=== PATIENT | female | born 1970 | race Caucasian/White ===

== ENCOUNTER → 2016-10-18 | Outpatient (CLI) | payer BC ==
[~2016-10-18] MED LIST: AMLO-114 PO; ATOR-24 PO; CALCTAB7 PO; GLC500 PO; GLUC10007 PO; HYDR25TA5 PO; LISI10TA PO; MULT-240 PO; OMEG10007 PO; WARF-246 PO; WARF1TAB6 PO; WARF2TAB8 PO
[2016-10-18 18:18] LABS: ALT/SGPT 30 U/L (12-78); BLOOD UREA NITROGEN 21 mg/dl (7-18); BUN/CREATININE RATIO 21.2 (10-20); CALCIUM 9.3 mg/dl (8.5-10.1); CARBON DIOXIDE 27 mmol/L (21-32); CHLORIDE 103 mmol/L (98-107); CREATININE 0.99 mg/dl (0.60-1.20); GLUCOSE 100 mg/dl (70-99); POTASSIUM 4.1 mmol/L (3.5-5.1); SODIUM 138 mmol/L (136-145)
[2016-10-18 18:21] LABS: ALB/GLOB RATIO 0.8 (0.9-2); ALKALINE PHOSPHATASE 67 U/L (45-117); AST/SGOT 17 U/L (15-37)
[2016-10-19 06:13] LABS: ESTIMATED AVERAGE GLUCOSE 137 mg/dl; HA1C FLAG Normal (Normal)
== END | disposition home or self-care (01) ==
LOC: C.LAB 17:10
PROVIDERS: ATTEND Family Medicine
DX: E11.9 Type 2 diabetes mellitus without complications (principal)

== ENCOUNTER → 2017-03-20 | Outpatient (CLI) | payer BC ==
[~2017-03-20] MED LIST changes: -WARF2TAB8 PO
[2017-03-20 09:54] LABS: ALT/SGPT 50 U/L (12-78); BLOOD UREA NITROGEN 17 mg/dl (7-18); BUN/CREATININE RATIO 19.7 (10-20); CALCIUM 9.6 mg/dl (8.5-10.1); CARBON DIOXIDE 27 mmol/L (21-32); CHLORIDE 105 mmol/L (98-107); CHOLESTEROL 165 mg/dl (0-200); CREATININE 0.87 mg/dl (0.60-1.20); GLUCOSE 113 mg/dl (70-99); POTASSIUM 3.8 mmol/L (3.5-5.1); SODIUM 139 mmol/L (136-145); TRIGLYCERIDES 205 mg/dl (0-150); VERY LOW DENSITY LIPOPROT CALC 41 mg/dl
[2017-03-20 10:05] LABS: ALB/GLOB RATIO 0.7 (0.9-2); ALKALINE PHOSPHATASE 74 U/L (45-117); AST/SGOT 28 U/L (15-37); CHOLESTEROL/HDL RATIO 3.1; HDL CHOLESTEROL 53 mg/dl; LDL CHOLESTEROL CALCULATED 71 mg/dl
[2017-03-20 12:57] LABS: LYME DISEASE AB IGG NEG (NEG); LYME DISEASE AB IGM NEG (NEG)
[2017-03-20 13:42] LABS: ESTIMATED AVERAGE GLUCOSE 134 mg/dl; HA1C FLAG Normal (Normal)
== END | disposition home or self-care (01) ==
LOC: C.LAB 08:07
PROVIDERS: ATTEND Physician Assistant Medical
DX: R53.83 Other fatigue (principal); I26.99 Other pulmonary embolism without acute cor pulmonale; I10 Essential (primary) hypertension; E11.9 Type 2 diabetes mellitus without complications; E78.00 Pure hypercholesterolemia, unspecified

== ENCOUNTER → 2018-03-17 | Outpatient (CLI) | payer BC ==
[~2018-03-17] MED LIST changes: -AMLO-114 PO; +AMLO10TA3 PO; -CALCTAB7 PO; -GLUC10007 PO; -MULT-240 PO; -WARF1TAB6 PO
[2018-03-17 09:50] LABS: HEMOGLOBIN A1C 6.7 % (4.5-5.6)
[2018-03-17 10:07] LABS: ALBUMIN 3.5 gm/dl (3.4-5.0); ALKALINE PHOSPHATASE 74 U/L (45-117); ALT/SGPT 49 U/L (12-78); AST/SGOT 29 U/L (15-37); BLOOD UREA NITROGEN 15 mg/dl (7-18); CALCIUM 9.1 mg/dl (8.5-10.1); CARBON DIOXIDE 26 mmol/L (21-32); CREATININE 0.98 mg/dl (0.60-1.20); GLUCOSE 118 mg/dl (70-99); POTASSIUM 3.9 mmol/L (3.5-5.1); SODIUM 138 mmol/L (136-145); TOTAL PROTEIN 8.2 gm/dl (6.4-8.2)
== END | disposition home or self-care (01) ==
LOC: C.LAB 08:41
PROVIDERS: ATTEND Physician Assistant Medical
DX: E11.9 Type 2 diabetes mellitus without complications (principal); I10 Essential (primary) hypertension; E78.00 Pure hypercholesterolemia, unspecified

== ENCOUNTER 2024-09-18 06:31 | Observation (INO) ==
--- NOTE | 2024-08-19 10:40 | PAT Medication Instructions ---
Medication Instructions Date of Service August 19, 2024 Home Medications Medication Instructions Recorded sertraline 100 mg tablet 150 mg (1.5 x 100 mg) PO QAM 90 01/14/24 days #135 tabs Ozempic 2 mg/dose (8 mg/3 mL) 2 mg (0.75 mL) subcut Q7D #9 mL 03/12/24 subcutaneous pen injector (semaglutide) topiramate 25 mg tablet 25 mg PO HS #90 tabs 03/12/24 warfarin 5 mg tablet See Rx Instructions PO UD #170 tabs 03/26/24 atorvastatin 20 mg tablet 20 mg PO QPM #90 tabs 05/22/24 hydrochlorothiazide 25 mg tablet 12.5 mg (1/2 x 25 mg) PO QAM #45 05/22/24 tabs pantoprazole 40 mg tablet,delayed See Rx Instructions .Route 05/26/24 release .COMPLEX #90 tabs ustekinumab 90 mg/mL subcutaneous 90 mg subcut .w0sicba #1 mL 07/07/24 syringe (Stelara) mesalamine 800 mg tablet,delayed See Rx Instructions .Route 08/04/24 release .COMPLEX #540 tabs lisinopril 10 mg tablet See Rx Instructions .Route 08/12/24 .COMPLEX #30 tabs vgbksym-wtbfltwijefqa-wkfqzxee 250 mg-250 mg-65 mg tablet (Excedrin Extra Strength) 1 tab PO DAILY PRN migraines dicyclomine 10 mg capsule 10 mg PO Q6H PRN abdominal discomfort lactobacillus combination no.4 3 billion cell capsule (Probiotic) 3,000 mmu cells PO DAILY multivitamin 1 tab PO DAILY diclofenac sodium 1 % topical gel (Voltaren Arthritis Pain) 4 g topical QID PRN Pain sertraline 100 mg tablet 150 mg (1.5 x 100 mg) PO QAM Ozempic 2 mg/dose (8 mg/3 mL) subcutaneous pen injector (semaglutide) 2 mg (0.75 mL) subcut Q7D topiramate 25 mg tablet 25 mg PO HS warfarin 5 mg tablet See Rx Instructions PO UD atorvastatin 20 mg tablet 20 mg PO QPM hydrochlorothiazide 25 mg tablet 12.5 mg (1/2 x 25 mg) PO QAM pantoprazole 40 mg tablet,delayed release See Rx Instructions ustekinumab 90 mg/mL subcutaneous syringe (Stelara) 90 mg subcut .[id number] mesalamine 800 mg tablet,delayed release See Rx Instructions lisinopril 10 mg tablet See Rx Instructions naltrexone 50 mg tablet 50 mg PO DAILY WEIGHT MANAGEMENT Continue as directed pantoprazole 40 mg tablet,delayed release See Rx Instructions ASK your surgeon for instructions crxgltf-xvrikaggjovbo-waczjwps 250 mg-250 mg-65 mg tablet (Excedrin Extra Strength) 1 tab PO DAILY PRN migraines ASK your prescriber and surgeon warfarin 5 mg tablet See Rx Instructions PO UD ustekinumab 90 mg/mL subcutaneous syringe (Stelara) 90 mg subcut .[id number] mesalamine 800 mg tablet,delayed release See Rx Instructions STOP taking at least 7 days before surgery Ozempic 2 mg/dose (8 mg/3 mL) subcutaneous pen injector (semaglutide) 2 mg (0.75 mL) subcut Q7D STOP taking 24 hours before surgery diclofenac sodium 1 % topical gel (Voltaren Arthritis Pain) 4 g topical QID PRN Pain DO NOT take the morning of surgery dicyclomine 10 mg capsule 10 mg PO Q6H PRN abdominal discomfort lactobacillus combination no.4 3 billion cell capsule (Probiotic) 3,000 mmu cells PO DAILY multivitamin 1 tab PO DAILY hydrochlorothiazide 25 mg tablet 12.5 mg (1/2 x 25 mg) PO QAM naltrexone 50 mg tablet 50 mg PO DAILY WEIGHT MANAGEMENT Take morning of surgery With a small sip of water, OTHERWISE NOTHING TO EAT OR DRINK AFTER MIDNIGHT: sertraline 100 mg tablet 150 mg (1.5 x 100 mg) PO QAM Take evening before surgery dicyclomine 10 mg capsule 10 mg PO Q6H PRN abdominal discomfort (if needed) atorvastatin 20 mg tablet 20 mg PO QPM lisinopril 10 mg tablet See Rx Instructions topiramate 25 mg tablet 25 mg PO HS Other Notes If you have any questions please call us at [phone] or [phone] or [phone] or [phone]
--- NOTE | 2024-08-25 11:07 | Anesthesiology Consultation ---
Date of Service August 25, 2024 Assessment & Plan (1) Encounter for pre-operative examination: - Check coags, BSG, test DOS (Warfarin instructions per surgeon/prescriber) - Infectious disease screening: Per assessment on 08/25/24- No known recent infectious disease contacts or current infectious disease symptoms. - Outpatient joint assessment: Pt currently scheduled for inpatient pathway. If surgeon requests review for outpatient joint pathway, patient is not recommended candidate for outpatient joint program from anesthesia standpoint based on available information. - Semaglutide instructions: Patient informed by PAT to stop 7 days prior to surgery- voiced understanding. DOS 09/18/24. Advised last dose to be 09/09/24. Chart Review Chart Review: Acceptable Risk for Surgery and Patient seen in Pre Admission Testing Teaching & Discussion Pre-Anesthesia Teaching/Discussion Notes: Instructed NPO after midnight before surgery,except medications with 15 cc of water. Medication instructions provided according to the PAT guidelines. History Surgery Operation Date: 09/18/24 08:00 Proposed Procedures p Left Total Knee Arthroplasty - Siddharth Morgan, DO Height/Weight Height: 5 ft 6 in Weight: 120 kg Allergies Allergy/AdvReac Type Severity Reaction Status Date / Time latex Allergy Intermediate Skin Verified 08/24/24 11:46 redness/itchy, "bumpy" (latex gloves) Medications Home Medications Medication Instructions Recorded Confirmed Last Taken xedozlq-hdizdgezseqkb-vtswixhk 250 1 tab PO DAILY PRN migraines 03/10/21 08/19/24 Unknown mg-250 mg-65 mg tablet (Excedrin Extra Strength) dicyclomine 10 mg capsule 10 mg PO Q6H PRN abdominal 07/31/21 08/19/24 07/31/21 discomfort lactobacillus combination no.4 3 3,000 mmu cells PO DAILY 09/07/22 08/19/24 08/01/23 billion cell capsule (Probiotic) multivitamin 1 tab PO DAILY 10/17/22 08/19/24 07/31/23 diclofenac sodium 1 % topical gel 4 g topical QID PRN Pain 12/19/23 08/19/24 Unknown (Voltaren Arthritis Pain) sertraline 100 mg tablet 150 mg (1.5 x 100 mg) PO QAM 90 01/14/24 08/19/24 Unknown days #135 tabs Ozempic 2 mg/dose (8 mg/3 mL) 2 mg (0.75 mL) subcut Q7D #9 mL 03/12/24 08/19/24 Unknown subcutaneous pen injector (semaglutide) topiramate 25 mg tablet 25 mg PO HS #90 tabs 03/12/24 08/19/24 Unknown warfarin 5 mg tablet See Rx Instructions PO UD #170 tabs 03/26/24 08/19/24 Unknown atorvastatin 20 mg tablet 20 mg PO QPM #90 tabs 05/22/24 08/19/24 Unknown hydrochlorothiazide 25 mg tablet 12.5 mg (1/2 x 25 mg) PO QAM #45 05/22/24 08/19/24 Unknown tabs ustekinumab 90 mg/mL subcutaneous 90 mg subcut .h1gkrzd #1 mL 07/07/24 08/19/24 Unknown syringe (Stelara) mesalamine 800 mg tablet,delayed See Rx Instructions .Route 08/04/24 08/19/24 Unknown release .COMPLEX #540 tabs lisinopril 10 mg tablet See Rx Instructions .Route 08/12/24 08/19/24 Unknown .COMPLEX #30 tabs naltrexone 50 mg tablet 50 mg PO DAILY WEIGHT MANAGEMENT 08/19/24 08/19/24 Unknown pantoprazole 40 mg tablet,delayed See Rx Instructions .Route 08/24/24 Unknown release .COMPLEX #90 tabs Past Medical History Medical History Anxiety Deep vein thrombosis of distal lower extremity 2009, unknown etiology Taking warfarin Depression GERD (gastroesophageal reflux disease) HTN (hypertension) Hypercholesteremia Immunosuppression Lyme disease (~2020) no issues at present Migraine Mild obstructive sleep apnea Non-compliant w/CPAP Morbid obesity Nocturnal hypoxemia Per records Osteoarthritis Pulmonary embolism 2009, unknown etiology Taking warfarin Type 2 diabetes mellitus NIDDM Ulcerative colitis Dx 2007 Exercise / Class Metabolic Activity II 4-5 Yardwork/Stairs/Walk up hill (one FS: No CP, no SOB) Past Family History Family History Mother Diabetes Myocardial infarction Hypertension Grandmother (Maternal) Myocardial infarction Diabetes Father Esophageal cancer Colorectal cancer, Onset Age: 60 Lung cancer Liver cancer Colonic polyp Stomach cancer Grandfather (Maternal) Lymphoma Other No family history of adverse response to anesthesia Denies family history of Ovarian cancer Breast cancer Uterine cancer Past Surgical History Surgical History H/O excision of mass (2021) Compound melanocytic nevus In office procedure History of colonoscopy Tubular adenoma History of esophagogastroduodenoscopy (EGD) EGD/colonoscopy, [place] (07/2023) History of tonsillectomy and adenoidectomy 2006 History of wisdom tooth extraction Past Anesthesia History No Hx of Anesthesia Complications and No Family Hx of Anesthesia Complications History of PONV No Hx of PONV and No Hx of Motion Sickness Social History Smoking Status: Never smoker Do You Dip or Chew Tobacco: No Hx Alcohol Use: Yes Alcohol type: beer alcohol intake frequency: holidays/special occasions only Hx Substance Use: No substance use type: does not use Review of Systems Patient denies chest pain, shortness of breath, dyspnea on exertion, fever, chills, cough, wheezing, palpitations. Physical Exam Vital Signs BP 123/80 P 64 TEMP 97.7 SP02 99%RA RESP 18 Physical Full cervical extension range of motion. Full TMJ range of motion. TMD > 3.5 finger breaths Mallampati Score I Dentition: intact Lungs: clear throughout to auscultation Cardiac: regular rate and rhythm, no murmurs noted Spine: normal Carotid arteries: negative bruit Extremities: no LE edema Lab Results Anesthesia Preop Results Results Anesthesia Widget: WBC 6.78 K/ul (4.8-10.8) 08/25/24 Hgb 11.6 g/dl (12.0-16.0) L 08/25/24 Hct 37.6 % (37.0-47.0) 08/25/24 Plt 245 K/uL (130-400) 08/25/24 Na 138 mmol/L (136-145) 08/25/24 K 4.1 mmol/L (3.5-5.1) 08/25/24 Cl 106 mmol/L (98-107) 08/25/24 CO2 26 mmol/L (21-32) 08/25/24 BUN 22 mg/dl (6-23) 08/25/24 Creat 0.87 mg/dl (0.6-1.2) 08/25/24 Glucose Level 93 mg/dl (70-99(Fasting)) 08/25/24 PT 20.0 Seconds (9.0-12.0) H 08/25/24 PTT 34 Seconds (21-31) H 08/25/24 INR 2.0 (0.9-1.1) H 08/25/24 HA1c 6.2 % (4.5-5.6) H 07/07/24 Blood Type A Positive 08/25/24 Antibody Screen NEGATIVE 08/25/24 Testing Electrocardiogram Date: 08/25/24 NSR at 60bpm. "Normal ECG" Chest X-Ray Date: 08/25/24 Findings: + NAD
[~2024-09-18 06:31] MED LIST changes: -AMLO10TA3 PO; -ATOR-24 PO; +BUPIVACAINE 0.25% PF 30 ML VIAL ONE; +BUPIVACAINE 0.5 % 5 MG/1 ML PF 10ML VIAL ONE; -GLC500 PO; -HYDR25TA5 PO; -LISI10TA PO; -OMEG10007 PO; -WARF-246 PO
--- NOTE | 2024-09-18 06:34 | History & Physical Bridge Note ---
Date of Service September 18, 2024 History & Physical Bridge Note I have examined the patient, reviewed the History & Physical and in the interval since the performance of the History & Physical I have noted the following changes of clinical significance: no changes noted
[2024-09-18] MEDS ORDERED: MIDAZOLAM HCL 1 MG/ML 2ML VIAL ONE (06:47)
[2024-09-18] MEDS ORDERED: PROPOFOL IV EMULSION 10 MG/ML 20 ML VIAL IV ONE (06:50)
[2024-09-18] MEDS ORDERED: ONDANSETRON INJ 2 MG/ML 2 ML VIAL ONE ×2 (06:56→08:57)
[2024-09-18] MEDS: LR 60ML/HR IV SCH (07:19)
[2024-09-18] MEDS: LR 500ML BOLUS, THEN 15ML/HR IV SCH (07:19)
[2024-09-18] MEDS: GABAPENTIN 300 MG CAP PO SCH (07:20)
[2024-09-18] MEDS: ACETAMINOPHEN 500 MG TAB PO SCH ×2 (07:20→14:33)
[2024-09-18] MEDS: dexAMETHasone**PF** 10 MG/ML VIAL IV SCH (07:21)
[2024-09-18] MEDS: FAMOTIDINE 20 MG TAB PO SCH (07:22)
[2024-09-18] MEDS ORDERED: PROMETHAZINE HCL 6.25 MG in SODIUM CHLORIDE 0.9% 50 ML IV PRN (07:33)
[2024-09-18] MEDS ORDERED: ePHEDrine sulfate 50 MG/ML AMP IV PRN (07:33)
[2024-09-18] MEDS ORDERED: ONDANSETRON INJ 2 MG/ML 2 ML VIAL IV PRN ×2 (07:33→12:41)
[2024-09-18] MEDS ORDERED: fentaNYL citrate PF 100 MCG/2 ML VIAL IV PRN (07:33)
[2024-09-18] MEDS ORDERED: ATROPINE SULFATE 0.1 MG/ML 10ML SYR IV PRN (07:33)
[2024-09-18 07:59] LABS: Partial Thromboplastin Ratio 0.9; Partial Thromboplastin Time 25 Seconds (21-31); Prothrombin Time 10.9 Seconds (9.0-12.0)
[2024-09-18] MEDS: TRANEXAMIC ACID 1,000 MG **IV Pre-op IV SCH (08:08)
[2024-09-18] MEDS: ceFAZolin 3000MG 3,000 MG/72.5 ML BAG IV SCH (08:20)
[2024-09-18] MEDS ORDERED: KETAMINE HCL 10MG/ML SYR ONE (08:26)
[2024-09-18] MEDS ORDERED: KETOROLAC 30 MG/ML VIAL ONE (08:56)
[2024-09-18] MEDS: ROPIV 0.5% 246mg, Ketorolac 30mg, EPINEPHrine 0.5mg in NSS INFIL SCH (08:58)
[2024-09-18] MEDS: ORTHO JOINT ANESTHETIC ONE (08:59)
[2024-09-18] MEDS: TRANEXAMIC ACID 1,000 MG **IV Intra-op IV SCH (09:26)
--- NOTE | 2024-09-18 09:37 | Operative Report ---
PG Post Operative Report Pre & Post Diagnosis Operation Date: 09/18/24 08:00 Pre-Op Diagnosis: Left Knee Osteoarthritis Post-Op Diagnosis: Left Knee Osteoarthritis I identified the patient and participated in the time-out.: Yes Procedure Operation Date: 09/18/24 08:00 Actual Procedures p Left Total Knee Arthroplasty(Left) - Siddharth Morgan DO Surgeon Siddharth Morgan DO Rod Buster Adam Lynn PA-C Estimated Blood Loss 50 Findings Consistent with Post-Op Diagnosis Specimens Left femoral and tibial bone Description of Procedure Implants used: I used a Bella Persona total knee arthroplasty system with a size 8 femur, E tibia, 31 oval patella, and a size 12 CPS polyethylene bearing. All components were cemented in place with Biomet cement. Darlene arrived [facility] for the above procedure. She was seen in the preoperative holding area and the operative extremity was identified and signed. She was given a preoperative antibiotic, TXA, a spinal anesthetic and an adductor nerve block. She was taken back to the operating room and laid on the table in supine position. She was given basic sedation. The operative knee was then prepped and draped in sterile fashion. A timeout was done, and the patient and the operative extremity was properly identified. A midline incision was made directly over the patella. Dissection was taken down to the extensor mechanism. A medial parapatellar arthrotomy was used. The medial retinaculum was released and the fat pad was mostly excised. The knee was flexed and the ACL, PCL, and meniscus were removed. A drill was sent down the center of the femoral canal followed by an intramedullary rakan. Off that rakan a distal femoral cutting block was placed. 9 mm was resected off the distal femur at 5 of valgus. A posterior referencing AP sizing guide was then placed on the distal femur. The femur measured to be a size 8. 2 drill holes were placed in 3 of external rotation. A 4-in-1 cutting block was then impacted into place. Anterior, posterior, and chamfer cuts were then made. The proximal tibia was then exposed. An external tibial alignment guide was placed. A tibial cut guide was then anchored in place and the proximal tibia was then resected. The posterior aspect of the knee was then opened up and any additional meniscus fragments and osteophytes were removed. The tibia measured to be a size E. The tibial plate was then placed in the appropriate rotation and the tibia was drilled and punched. Trial components were then placed. I used a size 12 medial congruent polyethylene insert. The knee was brought through a full range of motion and felt to be stable. The peg holes for the femoral component were then drilled. The patella was then everted and 9 mm was resected off the posterior aspect of the patella. The patella measured to be a size 31 oval. 3 peg holes were then drilled. A trial patella was placed. The knee was once again brought through a full range of motion and felt to be stable. Trial components were then removed. The surrounding soft tissues were injected with 100 cc of an orthopedic pain control cocktail. All components were then cemented into place with Biomet cement. The final polyethylene insert was then snapped into place. Once cement was dry the tourniquet was deflated. Hemostasis was obtained. A dilute betadyne lavage was then done for 3 minutes. The joint was then irrigated with normal saline solution. The medial parapatellar arthrotomy was then closed with #1 Vicryl suture. The skin was closed with 2-0 Vicryl, 3-0V lock suture, and saundra. A soft compressive dressing was placed. She was then transferred to a hospital bed and taken to the postanesthesia care unit in stable condition. She tolerated the procedure well. Adam Lynn PA-C, was present for the entire procedure. He was critical for patient positioning, prepping, draping, retraction exposure, wound closure and application of sterile dressing. I attest to the content of the Intraoperative Record and any orders documented therein. Any exceptions are noted below.
--- NOTE | 2024-09-18 10:22 | XRay Report ---
XR knee LT 1 or 2V routine CLINICAL HISTORY: Surgical Post Op COMPARISON: None FINDINGS: Left knee prosthesis shows no hardware complication. There is expected soft tissue gas. Sk in saundra are present. IMPRESSION: Unremarkable postoperative exam. ACT 112: Negative or not required by law. Electronically signed by: Scout Mendez M.D. 09/18/2024 10:21 AM
[2024-09-18] MEDS ORDERED: HYDROmorphone INJ 0.5 MG/0.5 ML SYR IV PRN (12:41)
[2024-09-18] MEDS ORDERED: NALOXONE HCL 0.4 MG/1 ML VIAL/CARP IV PRN (12:41)
[2024-09-18] MEDS ORDERED: METOCLOPRAMIDE HCL INJ 5 MG/ML 2 ML VIAL IV PRN (12:41)
[2024-09-18] MEDS ORDERED: bisacodyL 10 MG SUPP PR PRN (12:41)
[2024-09-18] MEDS ORDERED: MAGNESIUM HYDROXIDE SUSP 30 ML UDC PO PRN (12:41)
[2024-09-18] MEDS ORDERED: PHARMACY GLYCEMIC MGMT CONSULT PRN (12:41)
[2024-09-18] MEDS ORDERED: GLUCAGON FOR INJ 1 MG VIAL SQ PRN (13:30)
[2024-09-18] MEDS ORDERED: GLUCOSE 10 TAB/TUBE PO PRN (13:30)
[2024-09-18] MEDS ORDERED: DEXTROSE 50% 50 ML SYRINGE IV PRN (13:30)
[2024-09-18] MEDS ORDERED: CARBOHYDRATES FOR HYPOGLYCEMIA PO PRN (13:30)
[2024-09-18] MEDS ORDERED: GLUCOSE 40% GEL 15 GM TUBE PO PRN (13:30)
--- NOTE | 2024-09-18 13:57 | Pharmacy Report ---
Pharmacy Glycemic Short Note 2 - Date of Service September 18, 2024 - Glycemic Short BSG Results (Last 24 hours): 09/18/24 09/18/24 09/18/24 07:11 09:59 12:50 POC Glucose 92 131 H 115 H OUTPATIENT ANTIDIABETIC REGIMEN: * Ozempic 2mg SQ weekly HbA1c: 6.2% on 07-07-24 ASSESSMENT: * 53 year old female admitted today for a left total knee arthroplasty (POD #0). Pharmacy has been consulted for glycemic management postop. * BSG preop was 131mg/dL and post op was 115mg/dL. She did received 10mg iv dexamethasone preop. * No basal insulin is needed at this time since her postop BSG is actually below the goal range. A very loose weight based insulin regimen will be started with dinner tonight and will be tightened if her BSGs start to rise later tonight. PLAN FOR INPATIENT GLYCEMIC CONTROL: * Hold outpatient diabetes medications * Basal insulin * None needed * Bolus insulin * NovoLog per scale ACHS or Q6hrs while NPO * Goal Range: Low 120 mg/dL - High 150 mg/dL * Correction Factor: 45 mg/dL/unit * Nutritional / Prandial insulin per carb ratio of 1 unit per 20 grams CHO consumed
--- NOTE | 2024-09-18 14:30 | Anesthesiology Progress Note ---
Date of Service September 18, 2024 Anesthesia Post Procedure Vital Signs Vital Signs: Temp Pulse Pulse Resp BP Pulse Ox O2 Del Method 09/18/24 14:21 36.8 C 64 18 120/76 98 Room Air 09/18/24 13:21 36.8 C 75 18 112/66 100 Room Air 09/18/24 12:56 36.3 C L 61 18 111/75 100 Room Air 09/18/24 12:26 36.7 C 55 L 16 114/82 100 Room Air 09/18/24 12:00 36.4 C L 09/18/24 11:45 54 L 16 110/64 92 Room Air 09/18/24 11:30 55 L 16 106/65 93 Room Air 09/18/24 11:20 58 L 16 114/66 93 Room Air 09/18/24 11:05 54 L 17 107/65 95 Room Air 09/18/24 10:50 51 L 16 108/65 95 Room Air 09/18/24 10:35 49 L 16 109/69 95 Room Air 09/18/24 10:25 48 L 16 105/70 95 Room Air 09/18/24 10:15 51 L 15 105/69 97 Room Air 09/18/24 10:05 53 L 17 102/60 98 Oxymask 09/18/24 09:57 36.5 C 59 L 17 103/63 100 Oxymask 09/18/24 06:57 37 C 64 20 125/78 98 Room Air O2 Flow Rate 09/18/24 14:21 09/18/24 13:21 09/18/24 12:56 09/18/24 12:26 09/18/24 12:00 09/18/24 11:45 09/18/24 11:30 09/18/24 11:20 09/18/24 11:05 09/18/24 10:50 09/18/24 10:35 09/18/24 10:25 09/18/24 10:15 09/18/24 10:05 5 09/18/24 09:57 5 09/18/24 06:57 Pain Intensity Left Knee: Pain Intensity: 6 Transfer of Care Handoff Completed per policy Notes Mental Status: alert / awake / arousable and participated in evaluation Patient Amnestic to Procedure: Yes Nausea / Vomiting: adequately controlled Pain: adequately controlled Airway Patency, RR, SpO2: stable & adequate BP & HR: stable & adequate Hydration State: stable & adequate Neuraxial Anesthesia: was administered and sensory block is resolving Anesthetic Complications: no major complications apparent and Pt Satisfied with anesthetic care
[2024-09-18] MEDS: MESALAMINE 800 MG TABCR PO SCH (14:33)
[2024-09-18] MEDS: WARFARIN SOD 5 MG TAB PO SCH (15:48)
[2024-09-18] MEDS: ceFAZolin 1000MG 1,000 MG/7.5 ML SYR IV SCH (15:53)
[2024-09-18] MEDS: INSULIN ASPART PER UNIT CHARGE SC SCH (17:04)
[2024-09-18] MEDS: oxyCODONE HCL IR 5 MG TAB (IMMEDIATE RELEASE) PO PRN (19:32)
[2024-09-18] MEDS: TOPIRAMATE 25 MG TAB PO SCH (21:11)
[2024-09-18] MEDS: lisinopril 10 MG TAB PO SCH (21:11)
[2024-09-18] MEDS: DOCUSATE SODIUM 100 MG CAP PO SCH (21:11)
[2024-09-18] MEDS: ATORVASTATIN 20 MG TAB PO SCH (21:11)
[2024-09-18] MEDS: SENNA 8.6 MG TAB PO SCH (21:11)
--- NOTE | 2024-09-19 08:41 | Orthopedic Progress Note ---
Date of Service September 19, 2024 Assessment & Plan (1) Status post left knee replacement: (2) Aftercare following left knee joint replacement surgery: Plan 53-year-old woman POD# 1 s/p left total knee replacement, doing well overall. Pain is well-controlled. Medically stable. Postop x-rays well-appearing. She is neurologically intact. Plan: 1. DVT prophylaxis w/ TEDs, SCDs, Lovenox until INR is therapeutic, with return to home regimen of Coumadin. 2. PT/OT as tolerated. WBAT on the L LE. Encourage heel slides, SLR, full knee extension w/ quad sets. 3. Pain control doing well with current pain regimen. 4. Dressing change by nursing after PT/OT, prior to discharge. 5. Disposition - plan to D/C home w/ energy PT later today once cleared by PT/OT. 6. F/u 2 weeks post-op w/ orthopedics (Dr. Morgan's team), or as previously scheduled, for first post-op visit. Subjective Patient is POD# 1 s/p left total knee arthroplasty by Dr. Morgan on 09/10/2024. Patient says her pain is well-controlled this morning. Denies CP, SOB, N/V, L LE paresthesia. 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 Patient says that she will be ready to go home today. Review of Systems All systems reviewed & are unremarkable except as noted in HPI & below. Physical Exam GENERAL: AA&Ox3, NAD. Pleasant, affect is calm. Sitting in bed and appears comfortable. RESPIRATORY: Normal respiratory effort with no signs of distress. CHEST/AXILLA: Chest movement symmetrical. No deformities noted. CARDIOVASCULAR: No edema noted. SKIN: [place], warm and dry. MS/EXTREMITY: Knee dressing & CAROL wrap c/d/i. TRICIA hose donned. + ankle dorsi/plantarflexion. NVI distally. Calf soft/NT. PT/DP pulses intact, 2+. Results & Data Results & Data Laboratory Results . Laboratory Results - last 48 hr 09/18/24 09/18/24 09/18/24 06:37 06:56 07:11 PT 10.9 INR 1.0 APTT 25 PTT Ratio 0.9 POC Glucose 92 POC Ur Test NEG 09/18/24 09/18/24 09/18/24 09:59 12:50 16:36 PT INR APTT PTT Ratio POC Glucose 131 H 115 H 120 H POC Ur Test 09/18/24 09/19/24 09/19/24 20:25 07:50 09:58 PT INR APTT PTT Ratio POC Glucose 106 H 96 108 H POC Ur Test Diagnostic Findings . Knee X-Ray 09/18/24 10:07 XR knee LT 1 or 2V routine CLINICAL HISTORY: Surgical Post Op COMPARISON: None FINDINGS: Left knee prosthesis shows no hardware complication. There is expected soft tissue gas. Skin saundra are present. IMPRESSION: Unremarkable postoperative exam. ACT 112: Negative or not required by law. Electronically signed by: Scout Mendez M.D. 09/18/2024 10:21 AM PG Care Time/CCT Total # of Minutes Spent Total Time Spent with Patient: Total time spent is greater than 50% in coordination of care (as documented) at patient's floor/unit and/or counseling patient: C[place] [address] SUB INP/OBS CARE 2/35MIN Patient Type Established History Expanded Problem Focused Exam Expanded Problem Focused Medical Decision Making Moderate Complexity Diagnoses Status post left knee replacement Z96.652 Aftercare following left knee joint replacement surgery Z47.1; Z96.652
[2024-09-19] MEDS: MULTIVITAMIN TAB PO SCH (08:56)
[2024-09-19] MEDS: SERTRALINE HCL 50 MG TABLET PO SCH (08:56)
[2024-09-19] MEDS: hydroCHLOROthiazide 25 MG TAB PO SCH (08:56)
[2024-09-19] MEDS: NALTREXONE HCL 50 MG TAB PO SCH (08:57)
[2024-09-19] MEDS: PANTOprazole 40 MG TAB PO SCH (08:57)
[2024-09-19] MEDS: ENOXAPARIN INJ 40 MG/0.4 ML SYR SQ SCH (09:54)
[2024-09-19] MEDS: SODIUM CHLORIDE 0.9% 500 ML IV ONE (10:04)
--- NOTE | 2024-09-19 10:22 | Discharge Summary ---
Date of Service September 19, 2024 Admission HPI (Per Admitting) Darlene is a pleasant 53-year-old female who has been dealing with chronic, increasing bilateral knee pain left worse than right. X-rays and clinical exam have been diagnostic for advanced osteoarthritis of the left knee. After failing extensive conservative treatment, she presents to the office today to discuss knee replacement surgery. Admission Exam (Per Admitting) Appearance:This is a well-developed, well-nourished female in no apparent distress.Musculoskeletal:Physical exam of the left knee does shows a slight varus deformity. Tenderness to palpation over the distal medial femoral condyle and over the medial joint line. Imaging:X-rays obtained in the office today 4 views of the left knee show advanced osteoarthritis with joint space narrowing, osteophyte formation, and [id number] articulation. Principal Diagnosis Same as "Discharge Diagnosis" noted below under Discharge Instructions. Discharge Exam GENERAL: AA&Ox3, NAD. Pleasant, affect is calm. Sitting in bed and appears comfortable. RESPIRATORY: Normal respiratory effort with no signs of distress. CHEST/AXILLA: Chest movement symmetrical. No deformities noted. CARDIOVASCULAR: No edema noted. SKIN: [place], warm and dry. MS/EXTREMITY: Knee dressing & CAROL wrap c/d/i. TRICIA hose donned. + ankle dorsi/plantarflexion. NVI distally. Calf soft/NT. PT/DP pulses intact, 2+. Discharge Data Consultations 09/18/24 12:41 Consult Anticoagulation Clinic Routine Procedures Performed Operation Date: 09/18/24 08:00 Actual Procedures p Left Total Knee Arthroplasty(Left) - Siddharth Morgan DO Ordered Studies 09/18/24 05:00 [facility] Hospital Course (1) Status post left knee replacement: (2) Aftercare following left knee joint replacement surgery: Plan On September 18, 2024 Darlene arrived at [facility] operating room and underwent a left total knee replacement without complications. Patient had an adductor canal block and spinal anesthetic for the procedure. Postoperatively, patient was transferred to the general orthopedic floor in stable condition and eventually started onto Lovenox injections and Coumadin for DVT prophylaxis as appropriate. Patient did have an episode of near syncope when attempting to get up with physical therapy on postop day #1. The therapist stated that the patient nearly lost consciousness and her blood pressure was measured to be 83/61 standing, and then she was assisted back into bed and BP was then measured to be 100/66. Patient then processed bated in afternoon PT and again was having issues with hypotension and near syncope. She remained in the hospital another night due to these episodes. Pain was well-controlled. Patient was eventually able to participate well with physical therapy, safely performing the necessary ambulation and range of motion exercises and properly demonstrating ADL tasks. Patient was then discharged home in stable condition, with [facility] services to begin. Patient will follow-up with orthopedics in 2 to 3 weeks for postoperative care. PG Care Time/CCT Total # of Minutes Spent Total Time Spent with Patient: Total time spent is greater than 50% in coordination of care (as documented) at patient's floor/unit and/or counseling patient: Discharge Plan Discharge Items Patient Disposition: Home - Self-Care Reason For Visit: Left Knee Osteoarthritis Discharge Diagnosis: Left knee replacement Activity: Per Instructions section Non-emergency contact: Surgeon Call non-emergency contact if: your wound has increased redness and your wound has increased drainage Follow-up/Referrals: Siddharth Sutton DO [Primary Care Provider] - Cade Flores PA-C [Physician Assistant Professor Of Business] - (as scheduled 10/06/24 @ 9:30 am) Diet: Regular Addtl Attending Provider Instructions: Activity and Therapy Recommendations: * If you are using [facility] then therapy will be provided at your home until they feel you have accomplished all of your goals. * If you are using [facility] then Physical Therapy will be provided until they feel you are ready to start Outpatient Physical Therapy. * If you are not using home therapy then Outpatient Physical Therapy should start about 3-5 days from your day of surgery. Therapy will last about 6-10 weeks * It is important not to put a pillow under your knee when you are relaxing or sleeping. It is just as important to make sure you are getting your knee perfectly straight as it is to regain your knee bend. * You were shown a series of exercises in the hospital. Do these exercises three times each day including the exercises you were shown in physical therapy. * Get up and walk several times each day. For the first four weeks, try not to stand or walk for more than one hour at a time. If you do stand or walk for more than one hour, you will not hurt anything, but your leg will likely swell. * As you feel comfortable, you may change from the walker or crutches to a cane and then to independent walking. Medications: * Narcotic You will likely be sent home from the hospital with a prescription for the narcotic pain medication that worked best throughout your stay. * Cefadroxil -take the antibiotic twice a day for 10 days to help prevent infection. * Aspirin Most patients will be required to take Aspirin 81mg twice a day for 6 weeks after surgery. This is obtained [id number] and a prescription is not necessary. * Other medications may be prescribed for specific circumstances. If you have any questions, please call the office at . * Resume previous home medications unless otherwise instructed TEDs/Elastic Stockings: The white elastic stockings help limit swelling and prevent blood clots from forming in your legs.~ The more you wear them, the more they work. Wear them for six weeks. Dressing Care: The dressing can be changed after physical therapy on postop day #1. Daily dry dressing changes for a few days, especially if the incision is still draining some. If the incision is not draining then you may leave the saundra open to air. If there is a little bit of drainage or if the saundra are getting stuck on your clothing then cover the incision with a dry dressing. The saundra will be removed at your 2 week follow-up appointment. Showering: You may shower 5 days from the day of surgery as long as the incision is no longer draining. You may shower with the saundra exposed. Let soapy water run over the saundra and pat them dry. Do not scrub or soak the incision. Diet: You may resume your previous diet. Things To Watch For: * Drainage from the incision site that occurs more than one week after your surgery. * Increased redness at the incision site. * Fever above 102 degrees Fahrenheit. * Unusual chest pain or shortness of breath. * Call [facility] at with any of the above problems Follow-Up Visit: Follow-up with Dr. Morgan's office 2-3 weeks after your day of surgery. We will remove your saundra and answer any questions. If you have any additional questions or concerns, Dr Morgan is usually in the office at the same time and will be available An appointment was probably scheduled when you signed-up for surgery in the office. If you have any questions call Office Instructions: More detailed instructions as well as Frequently Asked Questions were provided in a folder by our office when you signed-up for surgery. Please review these instructions when you get home. If you have any further questions or concerns, please feel free to call the office at [phone] Pending Studies at Discharge: No Stand-Alone Forms: [facility], Pain - Opioid Pain Management, Smoking Cessation Medications and DC Order Prescriptions: New oxycodone 5 mg tablet 5 mg PO Q6H PRN (Reason: pain) Qty: 30 0RF cefadroxil 500 mg capsule 500 mg PO BID 10 Days Qty: 20 0RF Continued multivitamin Tablet 1 tab PO DAILY warfarin 5 mg tablet See Rx Instructions PO UD Rx Instructions: 5mg q Schwarz, 10mg x 6 days per [facility] orally use as directed; ON HOLD FOR SURGERY Excedrin Extra Strength 250-250-65 mg tablet 1 tab PO DAILY PRN (Reason: migraines) Probiotic 3 billion cell capsule 3,000 mmu cells PO DAILY Rx Instructions: administer with a meal diclofenac sodium [Voltaren Arthritis Pain] 1 % gel 4 g topical QID PRN (Reason: Pain) Rx Instructions: apply to knees sertraline 100 mg tablet 150 mg PO QAM 90 Days Qty: 135 3RF atorvastatin 20 mg tablet 20 mg PO QPM Qty: 90 3RF hydrochlorothiazide 25 mg tablet 12.5 mg PO QAM Qty: 45 3RF mesalamine 800 mg tablet,delayed release (DR/EC) See Rx Instructions .ROUTE .COMPLEX Qty: 540 2RF Dose Instruction: TAKE 2 TABLETS 3 TIMES A DAY Rx Instructions: TAKE 2 TABLETS 3 TIMES A DAY lisinopril 10 mg tablet See Rx Instructions .ROUTE .COMPLEX Qty: 30 0RF Dose Instruction: TAKE 1 TABLET DAILY IN THE EVENING Rx Instructions: TAKE 1 TABLET DAILY IN THE EVENING pantoprazole 40 mg tablet,delayed release (DR/EC) See Rx Instructions .ROUTE .COMPLEX Qty: 90 0RF Dose Instruction: TAKE ONE TABLET BY MOUTH EVERY DAY Rx Instructions: TAKE ONE TABLET BY MOUTH EVERY DAY enoxaparin [Lovenox] 40 mg/0.4 mL syringe 40 mg subcut DAILY Qty: 3 0RF Rx Instructions: use as directed on 09/19, 09/20, and 09/21/24 as directed by [facility] Antico[facility] Clinic Stelara 90 mg/mL syringe 90 mg subcut .[id number] Qty: 1 8RF topiramate 25 mg tablet 25 mg PO HS Qty: 90 3RF Ozempic 2 mg/dose (8 mg/3 mL) pen injector 2 mg subcut Q7D Qty: 9 3RF dicyclomine 10 mg capsule 10 mg PO Q6H PRN (Reason: abdominal discomfort) naltrexone 50 mg tablet 50 mg PO DAILY Discharge Orders: Discharge Order (Routine); Ordered 09/20/24 Ordered By: Adam Orozco/Other Patient Handouts: DVT Post Op Prevention, Tips After Knee Surgery, Knee Replacement Total Dc Admission Data Admit Date/Time: 09/18/24 10:07 Attending Provider: Siddharth Morgan Admit Provider: Siddharth Morgan Primary Care Provider: Siddharth Sutton Other Providers: Francia Edmonds Other Interventions: Discharge Summary Assessment (RN) Last Done: 09/20/24 09:45
[2024-09-19 20:50] VITALS: O2SAT 99
--- NOTE | 2024-09-20 07:59 | Orthopedic Progress Note ---
Date of Service September 20, 2024 Assessment & Plan (1) Status post left knee replacement: (2) Aftercare following left knee joint replacement surgery: Plan 53-year-old woman POD# 2 s/p left total knee replacement, doing well overall. Pain is relatively well-controlled. She will be working some more with therapy today, and hopefully has no further near syncopal episodes. Plan: 1. DVT prophylaxis w/ TEDs, SCDs, Lovenox until INR is therapeutic, with return to home regimen of Coumadin. 2. PT/OT as tolerated. WBAT on the L LE. Encourage heel slides, SLR, full knee extension w/ quad sets. 3. Pain control doing well with current pain regimen. 4. Dressing change again by nursing after PT/OT, prior to discharge. 5. Disposition - plan to D/C home w/ [facility] later today once cleared by PT/OT, as long as she has no further near syncopal episodes. 6. F/u 2 weeks post-op w/ orthopedics (Dr. Morgan's team), or as previously scheduled, for first post-op visit. Subjective Patient is POD# 2 s/p left total knee arthroplasty by Dr. Morgan on 09/10/2024. Pain remain relatively well-controlled this morning; he rates a 5-6/10. Denies CP, SOB, N/V, L LE paresthesia. 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 Unfortunately, on both occasions that she attempted to get up with physical therapy, she had near syncopal episodes and seemingly orthostatic hypotension. She does say that on at least 1 of those occasions she took 2 of the oxycodone just prior to the attempted therapy session. She is go ing to work with therapy again today and hopes to be able to go home later on. Review of Systems All systems reviewed & are unremarkable except as noted in HPI & below. Physical Exam GENERAL: AA&Ox3, NAD. Pleasant, affect is calm. Sitting in bedside chair and appears comfortable. RESPIRATORY: Normal respiratory effort with no signs of distress. CHEST/AXILLA: Chest movement symmetrical. No deformities noted. CARDIOVASCULAR: No edema noted. SKIN: [place], warm and dry. MS/EXTREMITY: Knee dressing c/d/i. Very mild dried blood noted to proximal incision, stable. TRICIA hose donned. + ankle dorsi/plantarflexion. NVI distally. Calf soft/NT. PT/DP pulses intact, 2+. Results & Data Results & Data Laboratory Results . Diagnostic Findings . PG Care Time/CCT Total # of Minutes Spent Total Time Spent with Patient: Total time spent is greater than 50% in coordination of care (as documented) at patient's floor/unit and/or counseling patient: Coding Diagnoses Status post left knee replacement Z96.652 Aftercare following left knee joint replacement surgery Z47.1; Z96.652
[2024-09-20 08:03] VITALS: BP 126/83; PULSE 77; RESP 15; TEMP 97.7
[2024-09-20] MEDS ORDERED: WARFARIN SOD 5 MG TAB PO SCH (16:00)
== END 2024-09-20 13:41 | disposition home or self-care (01) ==
LOC: ASU 06:31 → 3E 06:31